=== PATIENT | male | born 1945 | race Caucasian/White ===

== ENCOUNTER 2021-08-03 12:25 | Emergency (ER) | payer MEDICARE, BC ==
[~2021-08-03] VITALS: Ht 182.9 cm; Wt 73.9 kg
[2021-08-03] MEDS ORDERED: TDAP DIPH,PERTUSS,TET VAC/PF 0.5 ML DISP.SYRIN IM ONE ×2 (13:15→13:59)
--- NOTE | 2021-08-03 14:19 | NUR ---
PT IS IN ROOM #2A. DR GRAY EVALUATED THE PT.
--- NOTE | 2021-08-03 14:20 | NUR ---
Patient discharged to home in stable condition. Written and verbal after care instructions given. Patient verbalizes understanding of instructions. Stressed follow up or return to ER for worsening s/s.
== END 2021-08-03 14:20 | disposition home or self-care (01) ==
LOC: ER 12:25
DX: S00.83XA Contusion of other part of head, initial encounter (principal); S40.812A Abrasion of left upper arm, initial encounter; W01.0XXA Fall on same level from slipping, tripping and stumbling without subsequent striking against object, initial encounter; Y93.01 Activity, walking, marching and hiking; Y92.480 Sidewalk as the place of occurrence of the external cause; M47.892 Other spondylosis, cervical region; E11.9 Type 2 diabetes mellitus without complications; Z85.46 Personal history of malignant neoplasm of prostate; R03.0 Elevated blood-pressure reading, without diagnosis of hypertension; I67.2 Cerebral atherosclerosis
CPT/HCPCS: 70450; 70486; 72125; 90715; A4663